=== PATIENT | male | born 1995 | race Hispanic/Latino ===

== ENCOUNTER 2017-04-28 10:13 | Emergency (ER) | payer OTHER ==
[2017-04-28 10:19] VITALS: TEMP 98.5; O2SAT 98; BMI 21.7
--- NOTE | 2017-04-28 10:59 | ED PDOC ---
Arrival/HPI - General Chief Complaint: ENT Problem Time Seen by Provider: 04/28/17 10:29 - History of Present Illness Narrative History of Present Illness (Text): 04/28/17 10:53 21yo male, denies any PMHx, with 3 week duration FB and scratchy throat sensation. pt denies cough or pain/difficulty swallowing. No f/c, denies TREVIZO or neck pain, no URI symptoms, no other complaints. Past Medical History - Provider Review Nursing Documentation Reviewed: Yes - Psychiatric Hx Substance Use: No - Surgical History Hx Orthopedic Surgery: Yes Hx Tonsillectomy: Yes Family/Social History Family/Social History: Unknown Family HX Smoking Status: Never Smoked Hx Alcohol Use: No Hx Substance Use: No Allergies/Home Meds Allergies/Adverse Reactions: Allergies tree and shrub pollen Allergy (Verified 04/28/17 10:19) SHORTNESS OF BREATH Physical Exam - Physical Exam Narrative Physical Exam (Text): 04/28/17 10:55 - Review of Systems Constitutional: Normal. absent: Fatigue, Weight Change, Fevers Eyes: Normal ENT: denies tristhmus. FB sensation Respiratory: Normal. absent: SOB, Cough, Sputum Cardiovascular: absent: Chest Pain, Palpitations, Syncope Gastrointestinal: Normal. absent: Abdominal Pain, Diarrhea, Nausea, Vomiting Genitourinary: Normal. absent: Dysuria, Frequency, Hematuria Musculoskeletal: Normal. absent: Arthralgias, Back Pain, Neck Pain Skin: no rashes, no erythema Neurological: absent: Focal Weakness Endocrine: Normal Hemo/Lymphatic: Normal Psychiatric: No suicidal or homicidal ideations Physical exam Patient appears age appropriate in no distress, speaking full sentences without difficulty - Systems Exam Head: Present: Atraumatic, Normocephalic Pupils: Present: PERRL Extroacular Muscles: Present: EOMI Conjunctiva: Present: Normal Mouth: Present: Moist Mucous Membranes Neck: Present: Normal Range of Motion. No: MIDLINE TENDERNESS, Paraspinal Tenderness Respiratory/Chest: Present: Clear to Auscultation, Good Air Exchange. No: Respiratory Distress, Accessory Muscle Use, Tachypneic Cardiovascular: Present: Regular Rate and Rhythm, Normal S1, S2, Peripheal Pulses Present. No: Murmurs Abdomen: Present: Normal Bowel Sounds. No: Tenderness, Distention, Peritoneal Signs, Rebound, Guarding Back: Present: Normal Inspection. No: Midline Tenderness, Paraspinal Tenderness Upper Extremity: Present: Normal Inspection. No: Cyanosis, Edema Lower Extremity: Present: Normal Inspection. No: Edema Neurological: Present: GCS=15, Speech Normal, cranial nerves II through XII fully intact with no cerebellar abnormality, neurosensory fully intact. No focal neurological deficits. Skin: Present: Warm, Dry, Normal Color. No: Rashes Lymphatic: Present: OX3, NI, NC Psychiatric: Present: Alert, Oriented x 3, Normal Insight, Normal Concentration Vital Signs Reviewed: Yes Vital Signs Temp Pulse Resp BP Pulse Ox 04/28/17 10:14 98.5 F 100 H 16 127/78 98 Temperature: Afebrile Blood Pressure: Normal Pulse: Tachycardic Respiratory Rate: Normal Appearance: Positive for: Well-Appearing Pain Distress: None Mental Status: Positive for: Alert and Oriented X 3 - Systems Exam Pharnyx: Present: Normal, Other (no tristhmus, no floor of mouth pain or elevation, no pain with hyoid manipulation). No: ERYTHEMA, EXUDATE, TONSILS ENLARGED, Peritonsilar Swelling, Uvular Deviation, Muffled/Hoarse Voice, Strider , Soft Palate/Uvular Edema Medical Decision Making ED Course and Treatment: 04/28/17 11:00 21yo male with FB sensation in the throat no acute findings on PE dw pt and mother adverse effects of CT vs xray joint decision to proceed with CT Report Date : 04/28/2017 12:21:32 PROCEDURE: CT NECK WITH CONTRAST Dictator : Yuri Kovacs MD IMPRESSION: Unremarkable contrast enhanced CT of the neck. No evidence of foreign body 04/28/17 12:32 pt in no distress, tolerating PO without difficulty states he has seasonal allergies will dc with rx pt states he feels comfortable being dc'd home with outpatient f/u Pt states he understands to return to the ER right away for new or worsening symptoms or for inability to f/u with PMD or specialist as instructed. Patient states that he fully agrees with and understands discharge instructions. States that he agrees with the plan and disposition. Verbalized and repeated discharge instructions and plan. I have given the patient opportunity to ask any additional questions. - Lab Interpretations Lab Results: 04/28/17 10:48 04/28/17 10:48 Lab Results 04/28/17 10:48: Sodium 141, Potassium 4.9, Chloride 105, Carbon Dioxide 25, Anion Gap 16, BUN 12, Creatinine 0.9, Est GFR ( Amer) > 60, Est GFR (Non- Af Amer) > 60, Random Glucose 91, Calcium 9.4, Total Bilirubin 0.8, AST 24, ALT 24, Alkaline Phosphatase 51, Total Protein 7.6, Albumin 4.4, Globulin 3.2, Albumin/Globulin Ratio 1.4 04/28/17 10:48: WBC 6.3, RBC 5.05, Hgb 15.5, Hct 45.4, MCV 89.9, MCH 30.7, MCHC 34.1, RDW 12.7, Plt Count 190, MPV 10.5, Gran % 69.3 H, Lymph % (Auto) 14.0 L, [place] % (Auto) 15.9 H, Eos % (Auto) 0.5 L, Baso % (Auto) 0.3, Gran # 4.37, Lymph # 0.9 L, [place] # 1.0 H, Eos # 0.0, Baso # 0.02 - RAD Interpretation Radiology Orders: 04/28/17 10:29 NECK SOFT TISSUE W/CONTRAST [CT] Stat - Medication Orders Current Medication Orders: Discontinued Medications Iohexol (Omnipaque 350 100 Ml) Confirm Administered Dose 350 mg [facility]: 04/28/17 11:26 Disposition/Present on Arrival - Present on Arrival Any Indicators Present on Arrival: No History of DVT/PE: No History of Uncontrolled Diabetes: No Urinary Catheter: No History of Decub. Ulcer: No History Surgical Site Infection Following: None - Disposition Have Diagnosis and Disposition been Completed?: Yes Diagnosis: Foreign body sensation in throat Disposition: HOME/ ROUTINE Disposition Time: 12:34 Patient Plan: Discharge Condition: GOOD Additional Instructions: PLEASE RETURN TO THE EMERGENCY DEPARTMENT FOR NEW OR WORSENING SYMPTOMS. RETURN RIGHT AWAY IF YOU CANNOT FOLLOW UP WITH YOUR PRIMARY CARE DOCTOR, CLINIC, OR SPECIALIST IN 1-2 DAYS. Prescriptions: Cetirizine HCl [Zyrtec] 10 mg PO DAILY #7 capsule Referrals: PCP,JAYLYN [Primary Care Provider] - Follow up with primary Dann Villalpando DO [Staff Provider] - Follow up with primary
[2017-04-28 11:02] LABS: ALB/GLOB RATIO 1.4 (1.1-1.8); ALBUMIN 4.4 g/dL (3.0-4.8); ALT/SGPT 24 U/L (7-56); AST/SGOT 24 U/L (15-59); BLOOD UREA NITROGEN 12 mg/dL (7-21); CALCIUM 9.4 mg/dL (8.4-10.5); GFR AFRICAN-AMERICAN > 60; GFR NON-AFRICAN AMERICAN > 60
[2017-04-28 11:04] LABS: BASO # 0.02 K/mm3 (0.0-2.0); BASO % 0.3 % (0.0-3.0); EOS % 0.5 % (1.5-5.0); GRAN # 4.37 (1.4-6.5); GRAN % 69.3 % (50.0-68.0); HEMOGLOBIN 15.5 gm/dL (14.0-18.0); LYMPH # 0.9 (1.2-3.4); MEAN CELL VOLUME 89.9 fL (80.0-105.0); MEAN CORPUSCULAR HEMOGLOBIN 30.7 pg (25.0-35.0); MEAN CORPUSCULAR HGB CONC 34.1 g/dl (31.0-37.0); MEAN PLATELET VOLUME 10.5 fl (7.0-11.0); MONO % 15.9 % (1.0-6.0); PLATELET COUNT 190 10^3/uL (120.0-450.0); RBC 5.05 10^6/uL (3.5-6.1); RED CELL DISTRIBUTION WIDTH 12.7 % (11.5-14.5); WHITE BLOOD COUNT 6.3 10^3/ul (4.5-11.0)
[2017-04-28] MEDS ORDERED: Iohexol 350 MG/100 ML VIAL ONE (11:25)
--- NOTE | 2017-04-28 12:23 | CT ---
PROCEDURE: CT NECK WITH CONTRAST HISTORY: FB sensation COMPARISON: None TECHNIQUE: CT of the neck with intravenous contrast. Coronal and sagittal reformats generated. Intravenous contrast dose: 100 cc of Omni 350 Radiation dose: DLP 357 mGy-cm This CT exam was performed using one or more of the following dose reduction techniques: Automated exposure control, adjustment of the mA and/or kV according to patient size, and/or use of iterative reconstruction technique. FINDINGS: NASOPHARYNX: Unremarkable. SUPRAHYOID NECK: Unremarkable oropharynx, oral cavity, parapharyngeal space and retropharyngeal space. INFRAHYOID NECK: Unremarkable larynx, hypopharynx, and supraglottic space. Vocal cords intact. MASS: None. GLANDS: Parotid and submandibular glands unremarkable. Normal size thyroid gland, without nodule. LYMPH NODES: Normal. No lymphadenopathy. CERVICAL SPINE: No fracture or focal lesion. VASCULAR STRUCTURES: Unremarkable. OTHER FINDINGS: None. IMPRESSION: Unremarkable contrast enhanced CT of the neck. No evidence of foreign body
[2017-04-28 12:44] VITALS: BP 122/79; PULSE 95; RESP 18
== END 2017-04-28 12:45 | disposition home or self-care (01) ==
LOC: ED 10:13
DX: R09.89 Other specified symptoms and signs involving the circulatory and respiratory systems (principal)
CPT/HCPCS: 70491; 80053; 85025; 99283; Q9967